=== PATIENT | female | born 1945 | race Caucasian/White ===

== ENCOUNTER 2022-05-26 09:15 | Outpatient (RCR) | payer MEDICARE, BC, SELFPAY | END 2022-07-07 14:22 | disposition home or self-care (01) | PROVIDERS: PCP Family Medicine; Visit Provider Orthopaedic Surgery Sports Medicine | DX: M25.561 Pain in right knee (principal); Z51.89 Encounter for other specified aftercare | CPT/HCPCS: 97110; 97140 ==

== ENCOUNTER 2023-07-24 12:41 | Emergency (ER) | payer MEDICARE, BC, SELFPAY ==
[2023-07-24] VITALS (8 sets, daily range): BP systolic 178–210; BP diastolic 80–113; PULSE 68–95; RESP 16–18; TEMP 36.6–36.9; O2SAT 96–99; BMI 31.0
--- NOTE | 2023-07-24 13:30 | ED_ITS ---
HPI - General Adult General Date Seen: 07/24/23 Chief complaint: Chest Pain Stated complaint: COVID +, trouble breathing/heart palpitations Time Seen by Provider: 07/24/23 12:47 History of Present Illness HPI narrative: This is a pleasant 78-year-old female with a past medical history including osteopenia, sensorineural hearing loss, arthritis who presents to the ER today with an episode of discomfort involving her left anterior chest. She has actually had symptoms dating back about 13 days. Symptoms started with URI symptoms, body aches, nausea and vomiting and diarrhea. They started while she was on a cruise in [place]. Two days into her symptoms she did test positive for coronavirus. She had symptoms ongoing of body aches, nausea and vomiting, cough, fatigue. She has also had some stiffness involving mostly her right leg that tends to be worse in the morning and get gradually better throughout the day. Patient reports that she saw a physician when she was in hungry last Tuesday or just to make sure it was safe for her to come home. Apparently based on her symptoms that Advised that she stay in hungry for further testing (possibly for a cardiac workup and hospitalization) but she declined his recommendation and flew home anyway. Since arriving home she still has on and ongoing mild COVID symptoms some shortness of breath. Mild nonproductive cough. No swelling in her legs. No ongoing fevers. She has been having some mild right-sided and periumbilical abdominal discomfort for the past several days. Today around lunch she had an episode of a feeling involving her left anterior chest below her breast where it felt painful or uncomfortable for about 30 minutes. It started right after she was eating lunch and then resolved on its own. The pain did not radiate. No abdominal pain. No right-sided pain. Did not go through to her back or down her arm. No shortness of breath, nausea, diaphoresis, palpitations. She came to the ER to get it checked out because that feeling of discomfort was different and new compared to her other COVID symptoms. At this time she feels fine. We do not her blood pressure is elevated at about 210/99 but she says she has a known white coat hypertension. Therefore we think her current blood pressure medication is probably exaggerated/inaccurate. She has no history of any heart murmurs, coronary disease, or other cardiac problems. No history of DVT/PE.. Related Data Home Medications Medication Instructions Recorded Confirmed ibuprofen 200 mg tablet (Advil) 200 mg PO Q6H PRN 04/20/22 04/20/22 Allergies Allergy/AdvReac Type Severity Reaction Status Date / Time No Known Allergies Allergy Unknown Verified 07/24/23 16:17 [facility] Medical History (Updated 07/24/23 @ 17:38 by Aiden Bermudez MD) Osteopenia ?M85.80 - Other specified disorders of bone density and structure, unspecified site (ICD-10) Anemia ?D64.9 - Anemia, unspecified (ICD-10) Arthritis ?M19.90 - Unspecified osteoarthritis, unspecified site (ICD-10) History of hepatitis A ?Z86.19 - Personal history of other infectious and parasitic diseases (ICD- 10) Hypercholesteremia ?E78.00 - Pure hypercholesterolemia, unspecified (ICD-10) Asthma ?J45.909 - Unspecified asthma, uncomplicated (ICD-10) Surgical History (Updated 04/20/22 @ 10:07 by Gardenia Watt) History of foot surgery ?Z98.890 - Other specified postprocedural states (ICD-10) History of cataract extraction ?Z98.49 - Cataract extraction status, unspecified eye (ICD-10) History of tonsillectomy ?Z90.89 - Acquired absence of other organs (ICD-10) H/O myomectomy (~1989) ?Z98.890 - Other specified postprocedural states (ICD-10) History of right knee surgery (01/11/22) ?Z98.890 - Other specified postprocedural states (ICD-10) Family History Father Multiple myeloma Tuberculosis Mother History of bile duct cancer High blood pressure Social History Smoking Status: Never smoker Non-prescribed substance use: denies use Exam Narrative: Exam Narrative: Constitutional: Appears well-developed and well-nourished. Alert. Conversant. Non toxic. HENT: Head: Atraumatic. Nose: Nose normal. Mouth/Throat: Oral mucosa is clear and moist. no trismus. Pharynx normal. Tonsil s symmetric. No tonsillar enlargement, erythema, or exudate. Eyes: Conjunctivae normal. EOM normal. Pupils equal, round, and reactive to light. No scleral icterus. Neck: Normal range of motion. Neck supple. No tracheal deviation present. No JVD Cardiovascular: Normal rate, regular rhythm. No gallop. No friction rub. No murmur heard. Symmetric radial and PT artery pulses Pulmonary/Chest: Effort normal. No stridor. No respiratory distress. No wheezes. No rales. No rhonchi . No tenderness. Abdominal: Soft. Bowel sounds normal. No distension. No mass. No right upper quadrant tenderness or Agudelo sign. No left upper quadrant tenderness. No CVA tenderness. No rebound. No guarding. Musculoskeletal: RUE: Normal range of motion. No tenderness. No deformity LUE: Normal range of motion. No tenderness. No deformity RLE: Normal range of motion. No edema. No tenderness. No deformity LLE: Normal range of motion. No edema. No tenderness. No deformity Lymph: No cervical adenopathy. Neurological: Alert and oriented to person, place, and time. Normal strength. CN II-VII intact. No sensory deficit. GCS eye subscore is 4. GCS verbal subscore is 5. GCS motor subscore is 6. Normal coordination Skin: Skin is warm and dry. No rash noted. No pallor. Normal capillary refill. Psychiatric: Normal mood. Normal affect. Const: Vital Signs, click to edit/add: Vital Signs - 24 hr 07/24/23 13:14 07/24/23 13:14 07/24/23 13:15 Temperature 98.4 F Pulse Rate 87 84 Pulse Rate [Pulse Oximeter] 95 Respiratory Rate 18 Blood Pressure Blood Pressure [Ri t Upper Arm] 210/99 H Pulse Oximetry 98 99 99 Oxygen Delivery Me thod Room Air 07/24/23 13:30 07/24/23 13:32 07/24/23 13:45 Temperature Pulse Rate 71 70 68 Pulse Rate [Pulse Oximeter] Respiratory Rate Blood Pressure 180/88 H Blood Pressure [Ri t Upper Arm] Pulse Oximetry 99 99 98 Oxygen Delivery Me thod 07/24/23 14:00 07/24/23 14:03 07/24/23 15:32 Temperature 97.9 F Pulse Rate 71 72 Pulse Rate [Pulse Oximeter] 78 Respiratory Rate 16 Blood Pressure 185/113 H Blood Pressure [Ri ght Upper Arm] 178/80 H Pulse Oximetry 96 99 97 Oxygen Delivery Me thod Room Air Course Vital Signs Vital signs: Initial Vital Signs Temperature 98.4 F 07/24/23 13:14 Temperature Source Temporal Artery Scan 07/24/23 13:14 Pulse Rate 87 07/24/23 13:14 Respiratory Rate 18 07/24/23 13:14 Blood Pressure 210/99 H 07/24/23 13:14 Blood Pressure Mean 136 H 07/24/23 13:14 Pulse Oximetry 98 07/24/23 13:14 Oxygen Delivery Method Room Air 07/24/23 13:14 Vital Signs Temperature 98.4 F 07/24/23 13:14 Pulse Rate 87 07/24/23 13:14 Respiratory Rate 18 07/24/23 13:14 Blood Pressure 210/99 H 07/24/23 13:14 Pulse Oximetry 98 07/24/23 13:14 Oxygen Delivery Method Room Air 07/24/23 13:14 Temperature 97.9 F 07/24/23 15:32 Pulse Rate 78 07/24/23 15:32 Respiratory Rate 16 07/24/23 15:32 Blood Pressure 178/80 H 07/24/23 15:32 Pulse Oximetry 97 07/24/23 15:32 Oxygen Delivery Method Room Air 07/24/23 15:32 Medical Decision Making MDM Narrative Medical decision making narrative: This patient has had recent coronavirus illness associated with cough, body aches, myalgias, some symptoms involving leg weakness, abdominal pain, mild shortness of breath. She is on day 13 of symptoms. At this point she is not hypoxic. Chest CT imaging is negative for PE or any signs of significant pulmonary infiltrates suggesting bad COVID. She presents to the ER today because she had an episode of discomfort involving her left anterior chest below her breast that happened around lunchtime today. It lasted about 30 minutes and resolved on its own. Differential was broad. No evidence of palpitations, syncope or other cardiac dysrhythmia on EKG and registered sales assistant here in the ER. We considered possible ACS. no active pain requiring nitro. Aspirin administered . workup with EKG and troponin is negative. . Given time since onset of symptoms, we did obtain delta troponins in the ER. I do not think the patient needs to be admitted for further sets of enzymes. She was noted to be hypertensive at triage but she endorses a strong history of white coat hypertension. Blood pressure did improve without specific antihypertensive treatment here in the ER but is still slightly elevated. Recommend close outpatient follow-up. EKG shows no evidence for pericarditis. Clinical presentation not suggestive of myocarditis. Chest CT shows no evidence for pneumonia, pneumothorax, pulmonary edema, pleural effusion, rib fracture, cardiomegaly. Mediastinum is normal on the CT. The patient has no ripping or tearing pain through to the back and has symmetric pulses on exam, no other acute neuro findings so I doubt aortic dissection. Risk of radiation and contrast exposure would outweigh the benefit of CT angiogram. We considered PE for this patient. Abnormal D-dimer prompted chest CT. Chest CT is negative for PE. I wonder for D-dimer may be full slightly elevated because of reaction from coronavirus. No wheezing or bronchospasm to suggest COPD/asthma. No signs of sepsis or bacterial pneumonia. No signs of chest wall cellulitis, shingles, injury. With reasonable clinical confidence, I think the patient is safe for outpatient follow up. Discussed return precautions. Questions answered. Patient voices comfort with the plan. Lab Data Labs: Lab Results 07/24/23 07/24/23 Range/Units 13:53 16:26 WBC 6.16 (4.50-11.00) K/uL RBC 4.64 (4.00-5.20) m/uL Hgb 13.6 (12.0-16.0) gm/dL Hct 42.3 (33.0-51.0) % MCV 91 (80-100) fL MCH 29 (26-34) pg MCHC 32 (32-36) gm/dL RDW Coeff of Josephine 12.7 (11.5-15.5) % Plt Count 321 (140-440) K/uL Neut % (Auto) 63.1 (42.0-72.0) % Lymph % (Auto) 27.8 (20-44) % [place] % (Auto) 7.8 (0.0-11.0) % Eos % (Auto) 1.0 (0.0-7.0) % Baso % (Auto) 0.3 (0.0-3.0) % Neut # (Auto) 3.89 (1.7-7.0) K/uL Lymph # (Auto) 1.71 (0.90-2.90) K/uL [place] # (Auto) 0.50 (0.00-0.90) K/UL Eos # (Auto) 0.06 (0.00-0.50) K/uL Baso # (Auto) 0.02 (0.00-0.30) K/uL Abs Immat Gran (auto) 0.00 (0.00-0.30) K/uL Imm/Tot Granulo (auto) 0.0 % D-Dimer Quant (PE/DVT) 0.86 H (0.00-0.50) ug/ml Sodium 140 (135-149) mmol/L Potassium 3.3 L (3.6-5.1) mmol/L Chloride 104 (96-114) mmol/L Carbon Dioxide 30 (20-32) mmol/L Anion Gap 6 L (7-15) mEq/L BUN 17 (7-30) mg/dL Creatinine 0.6 (0.5-1.5) mg/dL Estimated Creat Clear 38.97 Estimated GFR 92 ml/min Glucose 124 H (60-115) mg/dL Calcium 8.9 (8.4-10.6) mg/dL Total Bilirubin 0.4 (0.1-1.5) mg/dL AST 31 (12-35) U/L ALT 16 (4-35) U/L Alkaline Phosphatase 72 (40-150) U/L Troponin I < 0.01 L < 0.01 L (0.01-0.04) ng/mL Total Protein 7.9 (6.0-8.3) g/dL Albumin 4.3 (3.3-5.0) g/dL Lipase 90 (23-300) U/L Imaging Data CT scan - abdomen: Attestation: I have reviewed the pertinent imaging results. Radiologist's impression: PE: Well-timed contrast bolus. No pulmonary emboli. Normal caliber main pulmonary artery. Normal sized right heart chambers. No reflux of contrast below the diaphragm. Heart and great vessels: No pericardial effusion. Normal cardiac chamber size. Few atherosclerotic plaques. No aortic aneurysm. Lungs: Expiratory phase imaging. There are 2 small perifissural nodules along the right minor fissure, consistent with benign intrapulmonary lymph nodes. No consolidations. Expiratory appearance of both lungs. There are scattered ground-glass opacification basilar atelectasis. Pleura: No pleural effusion. No pneumothorax. Airway: Normal tracheobronchial tree. Lymph nodes: No thoracic adenopathy. Mediastinum: No pneumomediastinum. Bones: No fractures. No focal bone lesions. Normal for age. Chest wall: Normal. No masses. Upper abdomen: Normal. IMPRESSION: Normal exam. No pulmonary embolus. ECG Data Attestation: I personally reviewed and interpreted this ECG as follows: Interpretation: Normal sinus rhythm rate 81 IN 144 QRS axis normal axis. no pathologic Q waves ST segment/T wave: st dep in II, FIDELINA in aVR. nonspecific QTc: 434 no old EKGs Discharge Plan Discharge Clinical Impression: COVID-19, Chest pain Patient Disposition: Home, Self-Care Condition: Stable Instructions: Chest Pain (ED) Additional Instructions: At this time your workup is reassuring. You have stable vital signs and normal oxygen. So far testing for your heart looks reassuring. It is safe for you to go home, but please Monitor carefully. If you have worsening symptoms or more episodes of chest pain, worsening shortness of breath, worsening cough, weakn ess, dizzy spells, high fever, or any other problems, please return to the ER right away to be rechecked. If you are not completely improved to normal within the next 5-7 days, check with your doctor or return to the ER for re-evaluation. Prescriptions: No Action ibuprofen [Advil] 200 mg tablet 200 mg PO Q6H PRN Follow Up/Referrals: Ban Wallace MD [Primary Care Provider] - Stand Alone Forms: [employer] Info Instructions
[2023-07-24 14:02] LABS: Basophils Absolute Auto 0.02 K/uL (0.00-0.30); Basophils Percent Auto 0.3 % (0.0-3.0); Eosinophils Absolute Auto 0.06 K/uL (0.00-0.50); Hematocrit 42.3 % (33.0-51.0); Hemoglobin* 13.6 gm/dL (12.0-16.0); Lymphocytes Absolute Auto 1.71 K/uL (0.90-2.90); Lymphocytes Percent Auto 27.8 % (20-44); Mean Corpuscular HGB Conc 32 gm/dL (32-36); Mean Corpuscular Hemoglobin 29 pg (26-34); Mean Corpuscular Volume 91 fL (80-100); Monocytes Percent Auto 7.8 % (0.0-11.0); Neutrophils Absolute Auto 3.89 K/uL (1.7-7.0); Neutrophils Percent Auto 63.1 % (42.0-72.0); Platelet Count* 321 K/uL (140-440); RDW Coefficient of Variation % 12.7 % (11.5-15.5); Red Blood Count 4.64 m/uL (4.00-5.20); White Blood Count* 6.16 K/uL (4.50-11.00)
[2023-07-24 14:06] LABS: Slide Review Reflex No
[2023-07-24 14:15] LABS: Albumin* 4.3 g/dL (3.3-5.0); Chloride* 104 mmol/L (96-114); Potassium* 3.3 mmol/L (3.6-5.1); Sodium* 140 mmol/L (135-149)
[2023-07-24 14:18] LABS: Alanine Aminotransferase* 16 U/L (4-35); Alkaline Phosphatase* 72 U/L (40-150); Anion Gap 6 mEq/L (7-15); Aspartate Amino Transferase* 31 U/L (12-35); Bilirubin Total* 0.4 mg/dL (0.1-1.5); Blood Urea Nitrogen* 17 mg/dL (7-30); Calcium* 8.9 mg/dL (8.4-10.6); Carbon Dioxide* 30 mmol/L (20-32); Creatinine* 0.6 mg/dL (0.5-1.5); Est. Creatinine Clearance* 38.97; Estimated Glomerular Filt Rate 92 ml/min; Glucose* 124 mg/dL (60-115); Lipase* 90 U/L (23-300); Total Protein* 7.9 g/dL (6.0-8.3)
[2023-07-24 14:19] LABS: D Dimer Quantitative* 0.86 ug/ml (0.00-0.50)
[2023-07-24] MEDS: ASPIRIN 81 MG TAB.CHEW 162 MG PO (14:26)
--- NOTE | 2023-07-24 14:52 | CRLHL7_ITS ---
For Patients: As a result of the Century Cures Act, medical imaging exams and procedure reports are released immediately into your electronic medical record. You may view this report before your referring provider. If you have questions, please contact your health care provider. INDICATION: Chest pain, abnormal D-dimer COMPARISON: None. TECHNIQUE: CT angiogram chest with contrast, pulmonary embolism protocol. Multiplanar axial, coronal, and sagittal reformats are included. Intravenous contrast: 95 mL Isovue 370 FINDINGS: PE: Well-timed contrast bolus. No pulmonary emboli. Normal caliber main pulmonary artery. Normal sized right heart chambers. No reflux of contrast below the diaphragm. Heart and great vessels: No pericardial effusion. Normal cardiac chamber size. Few atherosclerotic plaques. No aortic aneurysm. Lungs: Expiratory phase imaging. There are 2 small perifissural nodules along the right minor fissure, consistent with benign intrapulmonary lymph nodes. No consolidations. Expiratory appearance of both lungs. There are scattered ground-glass opacification basilar atelectasis. Pleura: No pleural effusion. No pneumothorax. Airway: Normal tracheobronchial tree. Lymph nodes: No thoracic adenopathy. Mediastinum: No pneumomediastinum. Bones: No fractures. No focal bone lesions. Normal for age. Chest wall: Normal. No masses. Upper abdomen: Normal. IMPRESSION: Normal exam. No pulmonary embolus. Please note that all CT scans at this facility use dose modulation, iterative reconstruction, and/or weight-based dosing when appropriate to reduce radiation dose to as low as reasonably achievable. Dictated by Shannan Rascon MD @ 07/24/2023 3:39:52 PM (Electronically Signed)
[2023-07-24 15:38] LABS: Troponin I* < 0.01 ng/mL (0.01-0.04)
[2023-07-24 17:27] LABS: Troponin I* < 0.01 ng/mL (0.01-0.04)
== END 2023-07-24 17:46 | disposition home or self-care (01) ==
PROVIDERS: Emergency Provider Emergency Medicine; PCP Family Medicine
DX: U07.1 COVID-19 (principal); R07.9 Chest pain, unspecified
CPT/HCPCS: 36415; 71275; 80053; 83690; 84484; 85025; 85379; 93005; 99284; 99285; A9270; Q9967

== ENCOUNTER 2023-09-04 11:27 | Emergency (ER) | payer MEDICARE, BC, SELFPAY ==
[2023-09-04] VITALS (17 sets, daily range): BP systolic 157–199; BP diastolic 98–109; PULSE 78–98; RESP 18; TEMP 36.6; O2SAT 92–98; BMI 28.7
--- NOTE | 2023-09-04 11:45 | ED.GENADULT ---
HPI - General Adult General Time Seen by Provider: 11:45 Date Seen: 09/04/23 Chief complaint: Chest Pain Stated complaint: High BP, chest pain, shortness of breathe Time Seen by Provider: 09/04/23 11:44 Source: patient and RN notes reviewed Mode of arrival: ambulatory Limitations: no limitations History of Present Illness HPI narrative: This 78-year-old female is ambulatory into the ED with concern of her blood pressure. Patient was diagnosed with COVID while in [place] on July 13. She has been monitoring her blood pressure with a wrist monitor since July 15 after she got home. She states there was quite significant issues initially, when in your a pad sore throat cough and diarrhea. The day of her illness, she noted when she went up a flight of steps she became extremely lightheaded, this was just a short number of steps. By the next day she was not able to function, she would feel better by the end of the day but this continued on for the next 4-5 days. She was able to fly home than. She was evaluated in our ER about 6 weeks ago here. In this morning when she woke up, she states she was not feeling well, she was up early around 430-5 a.m.. She states her face just felt swollen and red, looked funny to her, had slight nausea, slight dizziness and felt shaky, had some chest pain in slight shortness of breath. She checked her blood pressure before she was up and moving around, had eaten yet and it was 179/113. Her diastolic number had never reportedly been that high. She rechecked it multiple times throughout the course of the morning, couple hours later the diastolic was 109. She did start feeling better and she came in because when she rechecked her blood pressure was 191/120 and this was feeling better. She does have white coat hypertension but her diastolic has reportedly never been up. Prior to COVID in a knee fracture where she gained some weight she notes her blood pressures were 95-105 and as low as 60s diastolic. Recently, they have been 117/72. Before bed last night she noted that her blood pressure is 145/86. She has had no recent fevers, no cough. She has had no prior heart or lung issues. She does note her right neck has been painful, points to the right base of her neck and has been present for 5 days. She has had this before prior to COVID but it is not lasted this long. She does note that she has an appointment for an echo tomorrow morning as part of all of her symptoms. She does not carry a diagnosis of hypertension. At the time I am talking to her, she does feel slightly short of breath, just has a mild sense of chest pain or pressure. Her blood pressure most recently on the monitor is 199/108, her pulse oximetry is in the upper 90s with a good waveform. Related Data Home Medications Medication Instructions Recorded Confirmed No Known Home Medications 09/04/23 09/04/23 Allergies Allergy/AdvReac Type Severity Reaction Status Date / Time No Known Allergies Allergy Unknown Verified 07/24/23 16:17 Review of Systems Status of ROS: Reports: 10 or more systems reviewed and unremarkable except as noted in History and below [facility] Medical History Osteopenia ?M85.80 - Other specified disorders of bone density and structure, unspecified site (ICD-10) Anemia ?D64.9 - Anemia, unspecified (ICD-10) Arthritis ?M19.90 - Unspecified osteoarthritis, unspecified site (ICD-10) History of hepatitis A ?Z86.19 - Personal history of other infectious and parasitic diseases (ICD-10) Hypercholesteremia ?E78.00 - Pure hypercholesterolemia, unspecified (ICD-10) Asthma ?J45.909 - Unspecified asthma, uncomplicated (ICD-10) Surgical History History of foot surgery ?Z98.890 - Other specified postprocedural states (ICD-10) History of cataract extraction ?Z98.49 - Cataract extraction status, unspecified eye (ICD-10) History of tonsillectomy ?Z90.89 - Acquired absence of other organs (ICD-10) H/O myomectomy (~1989) ?Z98.890 - Other specified postprocedural states (ICD-10) History of right knee surgery (01/11/22) ?Z98.890 - Other specified postprocedural states (ICD-10) Family History Father Multiple myeloma Tuberculosis Mother History of bile duct cancer High blood pressure Social History Smoking Status: Never smoker Non-prescribed substance use: denies use Exam Const: Vital Signs, click to edit/add: Vital Signs - 24 hr 09/04/23 11:33 09/04/23 12:26 09/04/23 12:30 Temperature 98 F Pulse Rate 86 84 Pulse Rate [Pulse Oximeter] 92 Respiratory Rate 18 Blood Pressure Blood Pressure [Ri ght Upper Arm] 199/108 H Pulse Oximetry 97 95 96 Oxygen Delivery Me thod Room Air 09/04/23 12:31 09/04/23 12:32 09/04/23 12:45 Temperature Pulse Rate 98 84 82 Pulse Rate [Pulse Oximeter] Respiratory Rate Blood Pressure 176/109 H Blood Pressure [Ri ght Upper Arm] Pulse Oximetry 96 97 95 Oxygen Delivery Me thod 09/04/23 13:00 09/04/23 13:02 09/04/23 13:15 Temperature Pulse Rate 81 81 80 Pulse Rate [Pulse Oximeter] Respiratory Rate Blood Pressure 157/98 H Blood Pressure [Ri ght Upper Arm] Pulse Oximetry 95 96 95 Oxygen Delivery Me thod 09/04/23 13:30 09/04/23 13:32 09/04/23 13:45 Temperature Pulse Rate 79 88 81 Pulse Rate [Pulse Oximeter] Respiratory Rate Blood Pressure 163/108 H Blood Pressure [Ri ght Upper Arm] Pulse Oximetry 96 98 97 Oxygen Delivery Me thod 09/04/23 14:01 Temperature Pulse Rate 82 Pulse Rate [Pulse Oximeter] Respiratory Rate Blood Pressure Blood Pressure [Ri ght Upper Arm] Pulse Oximetry 95 Oxygen Delivery Me thod Sarah Beth is a very pleasant 78-year-old female, she is lying in the bed in exam room 5. She is alert, interactive, no apparent distress, wearing a mask. Sclera clear, extraocular muscles intact, pupils are equal and round. She has no midline tenderness of her spine, cannot reproduce any paraspinous tenderness, neck is supple with full range of motion. No cervical adenopathy, no thyromegaly masses or nodules. CV regular rate and rhythm, no murmur, normal S1-S2, no S3-S4. Lungs are clear, she sits up easily, there is no tachypnea, no accessory muscle use. Her speech is normal. Abdomen is soft, nontender, nondistended, no organomegaly. She has no lower extremity edema. Moving extremities equally, was ambulatory into the ED of her own accord. Documenting provider has reviewed patient's vital signs: yes Course Course ED Course: This 78-year-old female will be on cardiac monitoring and pulse oximetry. Her blood pressure is certainly elevated, we have discussed that will observe for the time being. Certainly need to think about vascular issues, possible dissection, possible cardiac complications. We will get a full complement of labs including D-dimer and troponin, obviously kidney function as well. She is not hypoxic. Will look at two view chest x-ray to start with, she understands that we may need further advanced imaging. She is not hypoxic. Reevaluation(s) Time of Reevaluation #1: 13:22 Reevaluation #1: Reviewed normal chest x-ray, normal labs to this point. Her D-dimer is essentially the same as it was in June, 0.89 today and was 0.86 on July 24. She has most definitely had ongoing shortness of breath, chest pain and discomfort, dizziness and lightheadedness throughout her COVID. That is why she is having an echo tomorrow. We have discussed her neck pain, she states she just really only brought that up because of all of her other symptoms. She again has had that proceeding her COVID symptoms. No associated headache, no neurologic changes. We will do a 2nd troponin, reviewed with her that I need to figure out the timing on that. If this troponin is normal, likely discharge to home. Her current blood pressure is 1 50s systolic over 90s. She is coming down with her blood pressure without any intervention. We reviewed that this goes to show that interventions we may do can escalate problems and side effects. The fact that her blood pressure is coming down without any intervention, if we would have given her medicine, could have made her hypotensive. She understands the difficulty in just which a seen a blood pressure. I do not feel that any of her symptoms suggest any dissection, her underlying chest symptomatology, shortness of breath, dizziness and lightheadedness have been throughout this illness. I think that checking a 2nd troponin to ensure no change, continue to monitor blood pressure while here is indicated. If all this is staying stable, discharged to home for her echo tomorrow. Time of Reevaluation #2: 14:24 Reevaluation #2: Reviewed with patient that her troponins remained undetectable, EKGs are stable without any concerning change. Will have her follow up outpatient after her echo. She is stable at this time to discharge to home and have her blood pressure followed with her primary care provider. Vital Signs Vital signs: Initial Vital Signs Temperature 98 F 09/04/23 11:33 Temperature Source Temporal Artery Scan 09/04/23 11:33 Pulse Rate 92 09/04/23 11:33 Respiratory Rate 18 09/04/23 11:33 Blood Pressure 199/108 H 09/04/23 11:33 Blood Pressure Mean 138 H 09/04/23 11:33 Blood Pressure Position Supine 09/04/23 11:33 Pulse Oximetry 97 09/04/23 11:33 Oxygen Delivery Method Room Air 09/04/23 11:33 Vital Signs Temperature 98 F 09/04/23 11:33 Pulse Rate 92 09/04/23 11:33 Respiratory Rate 18 09/04/23 11:33 Blood Pressure 199/108 H 09/04/23 11:33 Pulse Oximetry 97 09/04/23 11:33 Oxygen Delivery Method Room Air 09/04/23 11:33 Temperature 98 F 09/04/23 11:33 Pulse Rate 82 09/04/23 14:01 Respiratory Rate 18 09/04/23 11:33 Blood Pressure 163/108 H 09/04/23 13:32 Pulse Oximetry 95 09/04/23 14:01 Oxygen Delivery Method Room Air 09/04/23 11:33 Medical Decision Making Medical Records Medical records reviewed: Yes I reviewed the patient's medical records Medical records narrative: On July 24, had negative chest CT with findings of normal exam and no pulmonary emboli. D-dimer at that point was 0.86. Did review her ER note from that day. Lab Data Lab results reviewed: Yes I reviewed the patient's lab results Labs: Lab Results 09/04/23 09/04/23 09/04/23 Range/Units 12:10 12:33 13:34 WBC 8.15 (4.50-11.00) K/uL RBC 4.77 (4.00-5.20) m/uL Hgb 14.0 (12.0-16.0) gm/dL Hct 43.0 (33.0-51.0) % MCV 90 (80-100) fL MCH 29 (26-34) pg MCHC 33 (32-36) gm/dL RDW Coeff of Josephine 12.5 (11.5-15.5) % Plt Count 253 (140-440) K/uL Neut % (Auto) 74.6 H (42.0-72.0) % Lymph % (Auto) 20.6 (20-44) % Pendleton % (Auto) 4.3 (0.0-11.0) % Eos % (Auto) 0.1 (0.0-7.0) % Baso % (Auto) 0.4 (0.0-3.0) % Neut # (Auto) 6.10 (1.7-7.0) K/uL Lymph # (Auto) 1.68 (0.90-2.90) K/uL Pendleton # (Auto) 0.40 (0.00-0.90) K/UL Eos # (Auto) 0.01 (0.00-0.50) K/uL Baso # (Auto) 0.03 (0.00-0.30) K/uL Abs Immat Gran (auto) 0.00 (0.00-0.30) K/uL Imm/Tot Granulo (auto) 0.0 % D-Dimer Quant (PE/DVT) 0.89 H (0.00-0.50) ug/ml VBG pH 7.378 (7.32-7.43) VBG pCO2 46 (40-50) mmHG VBG pO2 34.0 (25-47) mmHG VBG HCO3 27 (21-28) mmol/L Sodium 140 (135-149) mmol/L Potassium 3.8 (3.6-5.1) mmol/L Chloride 105 (96-114) mmol/L Carbon Dioxide 25 (20-32) mmol/L Anion Gap 10 (7-15) mEq/L BUN 11 (7-30) mg/dL Creatinine 0.6 (0.5-1.5) mg/dL Estimated Creat Clear 40.68 Estimated GFR 92 ml/min Glucose 112 (60-115) mg/dL Calcium 9.4 (8.4-10.6) mg/dL Magnesium 2.0 (1.5-2.6) mg/dL Total Bilirubin 0.3 (0.1-1.5) mg/dL AST 22 (12-35) U/L ALT 16 (4-35) U/L Alkaline Phosphatase 88 (40-150) U/L Troponin I < 0.01 L < 0.01 L (0.01-0.04) ng/mL C-Reactive Protein 0.9 (0.5-1.0) mg/dL NT-Pro-B Natriuret Pep 310 pg/mL Total Protein 8.1 (6.0-8.3) g/dL Albumin 4.7 (3.3-5.0) g/dL Lab Acknowledgement Test Added POC Troponin I 0.02 (0.01-0.04) ng/ml Imaging Data Chest x-ray: Attestation: I have reviewed the pertinent imaging results. My impression: I see no acute pathology on my preliminary review. Radiologist's impression: Patient: GERONIMO PEARSON Facility:?[facility] Patient ID:?[id number] Site Patient ID:?[id number]. Site :?[id number] Study:?XRay Chest 2V-09/04/2023 12:31:16 PM Ordering Physician:Violet Eubanks Final Report: INDICATION: sob, cp, elevated bp s/p covid INDICATION: Shortness of breath and chest pain. TECHNIQUE: Chest 2 views. COMPARISON: CT of the chest, 07/24/2023. FINDINGS: Cardiovascular and mediastinum: Heart size and vasculature are normal in caliber and appearance. Mediastinum is within normal limits. Lungs and pleural spaces: Lungs are clear. No sign of infiltrate or mass. No sign of pleural effusion. No pneumothorax. Bones and soft tissues: No significant findings. IMPRESSION: There is no acute airspace disease. Dictated by Shaq Reed MD @ 09/04/2023 1:07:35 PM Dictated by: Shaq Reed MD @ 09/04/2023 13:07:53 (Electronic Signature) ECG Data Attestation: I personally reviewed and interpreted this ECG as follows: (Normal sinus rhythm, 91 beats per minute, no acute ischemic change or abnormality noted on this EKG. Isolated flipped T-wave in possible incomplete right bundle branch block but by possible artifact in V1, certainly no ST segment changes. QT corrected 432 milliseconds.) Interpretation: Repeat EKG is the same. Sinus rhythm, 77 beats per minute. No acute changes for ischemia. QT corrected 411 milliseconds. Critical Care Time Critical Care Time Critical Care Time: No Discharge Plan Discharge Clinical Impression: Persistent shortness of breath after COVID-19, Elevated blood pressure reading Patient Disposition: Home, Self-Care Condition: Stable Instructions: Hypertension (ED) Additional Instructions: Need to complete the echo scheduled tomorrow, follow up with her primary care provider this week. Your primary care provider may need to monitor your blood pressure closer for while. They may need to consider further workup. The echo will be helpful in seen if there are any hypertensive changes to the heart muscle itself. If there are findings on the echo suggestive of this, medication for blood pressure management really should be considered, even if it is low dose. In the meantime, if you have worsening chest discomfort, shortness of breath, any symptoms suggestive neurologic changed to Stroke or other concerns, do recommend re-evaluation. Handout given on hypertension for you to review, we are not diagnosing you with hypertension at this point, your blood pressures do need to be followed further before I would consider diagnose thing this. Activity Level: Activity as Tolerated Discharge Diet: Heart Healthy (2 gm sodium, low fat) Prescriptions: No Action No Known Home Medications Follow Up/Referrals: Ban Wallace MD [Primary Care Provider] - Stand Alone Forms: [employer] Info Instructions
--- NOTE | 2023-09-04 12:03 | CRLHL7_ITS ---
For Patients: As a result of the Cures Act, medical imaging exams and procedure reports are released immediately into your electronic medical record. You may view this report before your referring provider. If you have questions, please contact your health care provider. INDICATION: sob, cp, elevated bp s/p covid INDICATION: Shortness of breath and chest pain. TECHNIQUE: Chest 2 views. COMPARISON: CT of the chest, 07/24/2023. FINDINGS: Cardiovascular and mediastinum: Heart size and vasculature are normal in caliber and appearance. Mediastinum is within normal limits. Lungs and pleural spaces: Lungs are clear. No sign of infiltrate or mass. No sign of pleural effusion. No pneumothorax. Bones and soft tissues: No significant findings. IMPRESSION: There is no acute airspace disease. Dictated by Shaq Reed MD @ 09/04/2023 1:07:35 PM Dictated by: Shaq Reed MD @ 09/04/2023 13:07:53 (Electronically Signed)
[2023-09-04 12:20] LABS: HCO3 VBG 27 mmol/L (21-28); PCO2 VBG 46 mmHG (40-50); pH VBG 7.378 (7.32-7.43)
[2023-09-04 12:21] LABS: Basophils Absolute Auto 0.03 K/uL (0.00-0.30); Basophils Percent Auto 0.4 % (0.0-3.0); Eosinophils Absolute Auto 0.01 K/uL (0.00-0.50); Eosinophils Percent Auto 0.1 % (0.0-7.0); Lymphocytes Absolute Auto 1.68 K/uL (0.90-2.90); Lymphocytes Percent Auto 20.6 % (20-44); Mean Corpuscular HGB Conc 33 gm/dL (32-36); Mean Corpuscular Hemoglobin 29 pg (26-34); Mean Corpuscular Volume 90 fL (80-100); Monocytes Percent Auto 4.3 % (0.0-11.0); Neutrophils Percent Auto 74.6 % (42.0-72.0); Platelet Count* 253 K/uL (140-440); RDW Coefficient of Variation % 12.5 % (11.5-15.5); Red Blood Count 4.77 m/uL (4.00-5.20); White Blood Count* 8.15 K/uL (4.50-11.00)
[2023-09-04 12:24] LABS: Slide Review Reflex No
[2023-09-04 12:26] LABS: Troponin, Point-of-Care* 0.02 ng/ml (0.01-0.04)
[2023-09-04 12:36] LABS: Albumin* 4.7 g/dL (3.3-5.0); Chloride* 105 mmol/L (96-114)
[2023-09-04 12:37] LABS: Potassium* 3.8 mmol/L (3.6-5.1); Sodium* 140 mmol/L (135-149)
[2023-09-04 12:39] LABS: Creatinine* 0.6 mg/dL (0.5-1.5); Est. Creatinine Clearance* 40.68; Estimated Glomerular Filt Rate 92 ml/min
[2023-09-04 12:40] LABS: Alanine Aminotransferase* 16 U/L (4-35); Alkaline Phosphatase* 88 U/L (40-150); Anion Gap 10 mEq/L (7-15); Aspartate Amino Transferase* 22 U/L (12-35); Bilirubin Total* 0.3 mg/dL (0.1-1.5); Blood Urea Nitrogen* 11 mg/dL (7-30); Carbon Dioxide* 25 mmol/L (20-32); Total Protein* 8.1 g/dL (6.0-8.3)
[2023-09-04 12:41] LABS: Calcium* 9.4 mg/dL (8.4-10.6); Glucose* 112 mg/dL (60-115)
[2023-09-04 12:43] LABS: C Reactive Protein* 0.9 mg/dL (0.5-1.0); D Dimer Quantitative* 0.89 ug/ml (0.00-0.50)
[2023-09-04 13:03] LABS: NT Pro B Type NatriureticPept* 310 pg/mL
[2023-09-04 13:04] LABS: Troponin I* < 0.01 ng/mL (0.01-0.04)
[2023-09-04 14:15] LABS: Troponin I* < 0.01 ng/mL (0.01-0.04)
== END 2023-09-04 14:46 | disposition home or self-care (01) ==
PROVIDERS: Emergency Provider Family Medicine; PCP Family Medicine
DX: R06.02 Shortness of breath (principal); U07.1 COVID-19; R03.0 Elevated blood-pressure reading, without diagnosis of hypertension
CPT/HCPCS: 36415; 71046; 80053; 82803; 83735; 83880; 84484; 85025; 85379; 86140; 93005; 94761; 99284

== ENCOUNTER 2024-11-13 18:18 | Emergency (ER) | payer MEDICARE, BC, SELFPAY ==
[2024-11-13 18:30] VITALS: BP 163/96; PULSE 104; RESP 18; TEMP 36.9; O2SAT 99; BMI 30.1
--- OUTSIDE RECORDS SUMMARY | 2024-11-13 18:30 | XMS_ITS | Clinical Summary ---
Author Organization [facility] Address [address] [place] [id number] Care Team Providers Care Hedge Trimmer Name Role Phone aBn Wallace MD Primary Care Provider [phone] Allergies No known active allergies Medications amLODIPine (NORVASC) 5 mg tabletIndicatio ns:HTN (hypertension) Take 1 Tablet (5 mg) by mouth once daily. 90 Tablet 1 4 Active chlorthalidone (HYGROTON) 25 mg tabletIndicatio ns:HTN (hypertension) Take 0.5 Tablets (12.5 mg) by mouth once daily. 45 Tablet 1 4 Active albuterol HFA (ProAir HFA) 90 mcg/actuation inhalerIndicati ons:COVID-19 virus infection,SOB (shortness of breath) Inhale 1-2 Puffs by mouth every 6 hours if needed for Shortness of Breath 1st choice. 1 Each 3 11/13/19 25 Discontinu ed(*Med complete/R egimen complete/L evel of care change) Active Problems Problem Noted Date Diagnosed Date PSVT (paroxysmal supraventricular tachycardia) 0 09/30/2023 HTN (hypertension) 09/30/2023 Depression, recurrent 09/16/2023 Primary osteoarthritis of both first carpometaca rpal joints 02/24/2018 Overview (12/15/2019): January 2018: Bilateral [facility] Joint thumb injections by Dr. Santana, pain has been reduced by about 65% in the left hand, about 75% in the right. July 2018: repeat bilateral [facility] Joint thumb injections by Dr. Santana. 2 weeks post injections: 80% improvement in left hand and pain barely noticeable in right hand. January 2019: : repeat bilateral [facility] Joint thumb injections by Dr. Santana, 75% improvement at 3 weeks. Apr 2019: repeat bilateral [facility] Joint thumb injections by Dr. Santana, 90% right, 75% left 1 week after injections. Very good benefit bilaterally until October 2019. November 2019: repeat bilateral [facility] Joint injection by Dr. Santana. Left 70% improvement Right 50%. ACP (advance care planning) 08/05/2015 Overview (08/05/2015): Has done that. Jojo Chase M.D. 08/05/2015 11:04 AM Osteopenia 08/05/2015 Sensorineural Hearing Loss, Bilateral 04/04/2007 Resolved Problems Problem Noted Date Diagnosed Date Resolved Date Pyelonephritis 04/27/2013 08/05/2015 Shoulder pain 04/27/2013 08/05/2015 Encounters Date Type Department Care Team Description 11/13/2024 5:40 PM TEXTILE PIN WORKER Telemedicine [facility] [address] [place] [address] Aditi Cobos, LICENSED PROFESSIONAL COUNSELOR Telehealth 11/13/2024 Travel from Last 3 Months Immunizations Name Administration Dates Next Due Amb Influenza, Inact (High-d ose Quadrivalent) (Flu Clinic Only) 06/12/2020 COVID-19 vaccine (Moderna 10 0mcg/0.5mL) PF, MDV 03/26/2022,08/06/2021 COVID-19 vaccine (Moderna 50 mcg/0.5mL) 12YO+ BIVALENT PF, MDV 03/11/2023,07/21/2022,07/13/2022 Influenza, High-dose Inactivated 06/30/2017,05/27 Influenza, High-dose Quadriv alent Inactivated 07/03/2021 Influenza, IIV3 (Age >=3 years) 10/23/2012,11/10 Influenza, Inactivated AIIV4 (Age 65+ Years) Preserv Free 06/28/2023,07/13/2022 Influenza, Inactivated IIV3 (Age 65+ Years) Preserv Free 06/08/2024,10/12/2019,08/28/2018 Pneumococcal Poly,23-Valent (Pneumovax) 07/27/20 13,04/18/2013 Pneumococcal conj 13-Valent (Prevnar 13) 015 RSV, Recombinant ADJ Reconst ituted (Arexvy 120MCG/0.5mL) 07/04/2023 Td, Preservative Free (age >= 7 Years) 5 Tdap 01/10/2022,04/11/2006 Typhoid (injectable) 04/11/2006 Zoster (Shingrix-RZV, recombinant) 04/29/2020, Zoster (Zostavax-ZVL, live) 06/26/2016, 6 Family History Medical History Relation Name Comments Multiple myeloma Father Polycystic kidney disease Maternal Aunt Stroke Maternal Aunt Hypertension Mother Osteoporosis Mother Rheum arthritis Mother Tuberculosis Mother Heart Disease Paternal Grandfather Relation Name Status Comments Father Maternal Aunt Mother Paternal Grandfather Social History Tobacco Use Types Packs/Day Years Used Date Smoking Tobacco: Never Smokeless Tobacco: Never Tobacco Cessation:Counseling Given: Yes Alcohol Use Standard Drinks/Week Comments Yes 0 (1 standard drink = 0.6 oz pur e alcohol) rare PHQ-2 Answer Date Recorded PHQ-2 TOTAL SCORE 0 09/09/2023 Social Connections Answer Date Recorded Do you often feel lonely or isolated from those around you? 0 08/15/2023 Financial Resource Strain Answer Date R ecorded Difficulty of Paying Living Expenses 3 08/15/2023 Difficulty of Paying Living Expenses Not on file 08/15/2023 Food Insecurity Answer Date Recorded Do you worry your food will run out before you are able to buy more? 1 08/15/2023 Transportation Needs Answer Date Record ed Does lack of transportation keep you from medica l appointments? 1 08/15/2023 Does lack of transportation keep you from work, meetings or getting things that you need? 1 08/15/2023 Housing Stability Answer Date Recorded What is your housing situation today? 1 08/15/2023 Comments No Sex and Gender Information Value Date Recorded Sex Assigned at Female 09/04/2020 1:36 PM TEXTILE PIN WORKER Legal Sex Female 5:26 AM TEXTILE PIN WORKER Gender Identity Female 09/04/2020 1:36 PM TEXTILE PIN WORKER Sexual Orientation Straight 09/04/2020 1: 36 PM TEXTILE PIN WORKER Obstetrics History Last Filed Vital Signs Vital Sign Reading Time Taken Comments Blood Pressure 122/62 06/28/2024 2:45 PM CDT Pulse 79 06/28/2024 1:46 PM CDT Temperature 36.8 C (98.2 F) 09/09/2023 12:43 PM TEXTILE PIN WORKER Respiratory Rate - - Oxygen Saturation 99% 06/28/2024 1:46 PM CDT Inhaled Oxygen Concentration - - Weight 73.5 kg (162 lb) 06/28/2024 1:46 PM CDT Height 162.6 cm (5' 4) 10/20/2023 12:57 PM TEXTILE PIN WORKER Body Mass Index 27.81 10/20/2023 12:57 PM TEXTILE PIN WORKER Plan of Treatment Health Maintenance Due Date Last Done Comments Medicare Wellness for age 65+ 11/13/2020 11/13/2019, 08/05/2015 Depression screening for age 12+ 09/12/2024 09/12/2023, 09/12/2023, 09/12/2023, Additional history exists BMI (ht and wt on same day) for age 18+ 10/20/2024 10/20/2023, 09/30/2023, 09/09/2023, Additional history exists Tetanus booster 01/11/2032 01/10/2022, 07/27, 04/11/2006 DEXA/DXA scan for age 65+ Completed 08/05/2015 Pneumococcal series for age 50+ Completed 08/05/2015, 07/27/2013, 04/18/2013 Hepatitis C screening for ag e 18-79 Completed 11/13/2019 Zoster (shingles) series for age 50+ Completed 04/29/2020, 11/20/2019, 06/26/2016, Additional history exists Tdap Completed 01/10/2022, 04/11/2006 RSV vaccine for adults or Completed 07/04/2023 COVID-19 vaccine series Completed 06/08/20 24, 07/05/2023, 03/11/2023, Additional history exists Influenza for age 65+ Completed 06/08/2024 , 06/28/2023, 07/13/2022, Additional history exists Procedures Procedure Name Priority Date/Time Associated Diagnosis Comments ANTI HCV Routine 11/13/2019 1:57 PM TEXTILE PIN WORKER Encounter for hepatitis C screening test for low risk patient XR DXA BONE DENSITY 2 SITES AXIAL Routine 08/05/2015 2:35 PM TEXTILE PIN WORKER Disorder of bone Osteopenia from Last 3 Months or Most Recently Relevant to Health Maintenance Results * ANTI HCV (11/13/2019 1:57 PM TEXTILE PIN WORKER) HEPATITIS C ANTIBODY Non-React kevin Non-React kevin 11/13/2019 10:18 PM TEXTILE PIN WORKER [facility] Comment:Antibodies to HCV no t detected; does not exclude the possibility of exposure to HCV. Blood BLOOD SPECIMEN / Unknown Venipuncture / Unknown 11/13/2019 1:57 PM TEXTILE PIN WORKER 11/13/2019 1:57 PM TEXTILE PIN WORKER us Ban Wallace MD SEND OUTS Final Resul t [facility] [address] [place] [address], [place] * (ABNORMAL) XR DXA BONE DENSITY 2 SITES (08/05/2015 2:35 PM TEXTILE PIN WORKER) Anatomical Region Laterality Modality Spine, HIPS, HIPL, HIPR Other Narrative 08/11/2015 4:35 PM TEXTILE PIN WORKER Please see scanned document for results of this study. us Jojo Chase DEXA Final R esult from Last 3 Months or Most Recently Relevant to Health Maintenance Insurance * Guarantor: Jessi Segura Account Type Relation to Patient Date of Phone Billing Address Personal/Family Self 1945 [address] [place] [address] MEDICARE PB ONLY [facility] MEDICARE PART B HB ONLY Care Teams Hedge Trimmer Relationship Specialty Start Date End Date Ban Wallace MD [address] [place] [address] PCP - General Family Practice 12/06/17
--- NOTE | 2024-11-13 19:17 | ED.GENADULT ---
HPI - General Adult General Date Seen: 11/13/24 Chief complaint: Extremity Pain/Injury, Lower Stated complaint: Intermittent stiffness in legs Time Seen by Provider: 11/13/24 18:19 Source: patient Mode of arrival: ambulatory Limitations: no limitations History of Present Illness HPI narrative: Patient is a 79-year-old female presenting to the emergency department for lower extremity stiffness and pain. She states over the past few would she has had 5 episodes rules were she will stand up but her legs with started to feel very stiff in his if they are full of a heavy fluid. This will mostly be in her thighs on down. She states it feels like it is hard to bend her knees. She will then sit back down and there will be a slight burning sensation for a minute or so and then symptoms will fully resolved. She has had 3 episodes in the past week and to the past 2 days. She is concerned about this and went to urgent care for it and was told it could be possibly electrolyte related or MS. 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 Has not had any changes to her of vision that she is aware of. Has not noticed any hip issues. Does state when she 1st had COVID she had some upper extremity weakness was not any further upper extremity issues. She has not noticed any rashes. Denies chest pain, shortness of breath, abdominal pain, lightheadedness, dizziness, numbness, headache. No other concerns noted. Related Data Home Medications ?Medication ?Instructions ?Recorded ?Confirmed amlodipine 10 mg tablet mg DAILY 11/13/24 chlorthalidone 25 mg tablet mg QAM 11/13/24 Allergies Allergy/AdvReac Type Severity Reaction Status Date / Time No Known Allergies Allergy Unknown Verified 11/13/24 18:38 Review of Systems Status of ROS: Reports: 10 or more systems reviewed and unremarkable except as noted in History and below [facility] Medical History Osteopenia ?M85.80 - Other specified disorders of bone density and structure, unspecified site (ICD-10) Anemia ?D64.9 - Anemia, unspecified (ICD-10) Arthritis ?M19.90 - Unspecified osteoarthritis, unspecified site (ICD-10) History of hepatitis A ?Z86.19 - Personal history of other infectious and parasitic diseases (ICD-10) Hypercholesteremia ?E78.00 - Pure hypercholesterolemia, unspecified (ICD-10) Asthma ?J45.909 - Unspecified asthma, uncomplicated (ICD-10) Surgical History History of foot surgery ?Z98.890 - Other specified postprocedural states (ICD-10) History of cataract extraction ?Z98.49 - Cataract extraction status, unspecified eye (ICD-10) History of tonsillectomy ?Z90.89 - Acquired absence of other organs (ICD-10) H/O myomectomy (~1989) ?Z98.890 - Other specified postprocedural states (ICD-10) History of right knee surgery (01/11/22) ?Z98.890 - Other specified postprocedural states (ICD-10) Family History Father Multiple myeloma Tuberculosis Mother History of bile duct cancer High blood pressure Social History Smoking Status: Never smoker Do you use any of these nicotine containing products: None How often do you have a drink containing alcohol: never How often do you have six or more drinks on one occasion: Never AUDIT-C Alcohol total score: 0 Non-prescribed substance use: denies use service: No Exam Narrative: Exam Narrative: Const: Well-nourished, Well-developed, in no distress Eyes: PERRL, no conjunctival injection, and symmetrical lids HENT: Atraumatic external nose and ears. Moist mucous membranes. Neck: Symmetric, trachea midline, No thyromegaly. CVS: RRR, No murmurs or gallops. Peripheral pulses 2+ and equal in all extremities RESP: Unlabored respiratory effort. Clear to auscultation bilaterally. GI: Nontender/Nondistended, No rebound or guarding. MSK:Extremities w/o deformity, Normal Active ROM Skin: Warm, Dry. No rashes or lesions. Neuro: Normal Muscle tone, No focal neurological deficits. Psych: Awake, Alert, & Oriented x3. Appropriate mood and affect. Const: Vital Signs, click to edit/add: Vital Signs - 24 hr 11/13/24 18:30 Temperature 98.5 F Pulse Rate [Right Pulse Oximeter] 104 H Respiratory Rate 18 Blood Pressure [Ri ght Upper Arm] 163/96 H Pulse Oximetry 99 Oxygen Delivery Me thod Room Air Course Vital Signs Vital signs: Initial Vital Signs Temperature 98.5 F 11/13/24 18:30 Temperature Source Temporal Artery Scan 11/13/24 18:30 Pulse Rate 104 H 11/13/24 18:30 Pulse Rhythm Regular 11/13/24 18:30 Pulse Strength 3+ Normal 11/13/24 18:30 Respiratory Rate 18 11/13/24 18:30 Blood Pressure 163/96 H 11/13/24 18:30 Blood Pressure Mean 118 H 11/13/24 18:30 Blood Pressure Position Sitting 11/13/24 18:30 Pulse Oximetry 99 11/13/24 18:30 Oxygen Delivery Method Room Air 11/13/24 18:30 Vital Signs Temperature 98.5 F 11/13/24 18:30 Pulse Rate 104 H 11/13/24 18:30 Respiratory Rate 18 11/13/24 18:30 Blood Pressure 163/96 H 11/13/24 18:30 Pulse Oximetry 99 11/13/24 18:30 Oxygen Delivery Method Room Air 11/13/24 18:30 Temperature 98.5 F 11/13/24 18:30 Pulse Rate 104 H 11/13/24 18:30 Respiratory Rate 18 11/13/24 18:30 Blood Pressure 163/96 H 11/13/24 18:30 Pulse Oximetry 99 11/13/24 18:30 Oxygen Delivery Method Room Air 11/13/24 18:30 Medical Decision Making [facility] Narrative Medical decision making narrative: Patient is a 79-year-old female presenting to emergency department for lower extremity stiffness. Based on her description this could be electrolyte related so will order a magnesium, BMP. Also order a creatinine kinase as I do have some concern for auto immune myositis. Seems less likely to be a MS flare but that does not need an emergent MRI a either way and can be follow-up outpatient as she is currently asymptomatic. Lab work returned showing no concerning abnormalities. Her potassium is slightly low but unlikely to be causing the symptoms. This point I will discharge her and I informed her to follow up with her primary care provider. She is agreeable to this plan her Lab Data Labs: Lab Results 11/13/24 Range/Units 19:20 WBC 7.98 (4.50-11.00) K/uL RBC 4.64 (4.00-5.20) m/uL Hgb 13.4 (12.0-16.0) gm/dL Hct 41.6 (33.0-51.0) % MCV 90 (80-100) fL MCH 29 (26-34) pg MCHC 32 (32-36) gm/dL RDW Coeff of Josephine 12.8 (11.5-15.5) % Plt Count 294 (140-440) K/uL Neut % (Auto) 67.6 (42.0-72.0) % Lymph % (Auto) 25.1 (20-44) % [place] % (Auto) 5.8 (0.0-11.0) % Eos % (Auto) 0.9 (0.0-7.0) % Baso % (Auto) 0.5 (0.0-3.0) % Neut # (Auto) 5.40 (1.7-7.0) K/uL Lymph # (Auto) 2.00 (0.90-2.90) K/uL [place] # (Auto) 0.50 (0.00-0.90) K/UL Eos # (Auto) 0.07 (0.00-0.50) K/uL Baso # (Auto) 0.04 (0.00-0.30) K/uL Abs Immat Gran (auto) 0.01 (0.00-0.30) K/uL Imm/Tot Granulo (auto) 0.1 % Sodium 136 (135-149) mmol/L Potassium 3.3 L (3.6-5.1) mmol/L Chloride 96 (96-114) mmol/L Carbon Dioxide 31 (20-32) mmol/L Anion Gap 9 (7-15) mEq/L BUN 25 (7-30) mg/dL Creatinine 0.9 (0.5-1.5) mg/dL Estimated Creat Clear 38.35 Estimated GFR 65 ml/min Glucose 147 H (60-115) mg/dL Calcium 9.6 (8.4-10.6) mg/dL Magnesium 2.1 (1.5-2.6) mg/dL Total Creatine Kinase 71 (41-117) U/L Discharge Plan Discharge Clinical Impression: Stiffness of joint of lower extremity Patient Disposition: Home, Self-Care Condition: Stable Additional Instructions: I am not sure what is causing his symptoms at this time but I do recommend follow-up with your primary care provider as they may be able to do further testing. Prescriptions: No Action chlorthalidone 25 mg tablet QAM amlodipine 10 mg tablet DAILY Follow Up/Referrals: Ban Wallace MD [Primary Care Provider] - Stand Alone Forms: [facility]SI[facility] Info Instructions
[2024-11-13 19:32] LABS: Basophils Absolute Auto 0.04 K/uL (0.00-0.30); Basophils Percent Auto 0.5 % (0.0-3.0); Eosinophils Absolute Auto 0.07 K/uL (0.00-0.50); Eosinophils Percent Auto 0.9 % (0.0-7.0); Hematocrit 41.6 % (33.0-51.0); Hemoglobin* 13.4 gm/dL (12.0-16.0); Immature Granulocytes Abs Auto 0.01 K/uL (0.00-0.30); Immature Granulocytes Pct Auto 0.1 %; Lymphocytes Percent Auto 25.1 % (20-44); Mean Corpuscular HGB Conc 32 gm/dL (32-36); Mean Corpuscular Hemoglobin 29 pg (26-34); Mean Corpuscular Volume 90 fL (80-100); Monocytes Percent Auto 5.8 % (0.0-11.0); Neutrophils Percent Auto 67.6 % (42.0-72.0); Platelet Count* 294 K/uL (140-440); RDW Coefficient of Variation % 12.8 % (11.5-15.5); Red Blood Count 4.64 m/uL (4.00-5.20); White Blood Count* 7.98 K/uL (4.50-11.00)
[2024-11-13 19:40] LABS: Slide Review Reflex No
[2024-11-13 19:56] LABS: Chloride* 96 mmol/L (96-114); Sodium* 136 mmol/L (135-149)
[2024-11-13 19:57] LABS: Potassium* 3.3 mmol/L (3.6-5.1)
[2024-11-13 19:59] LABS: Anion Gap 9 mEq/L (7-15); Blood Urea Nitrogen* 25 mg/dL (7-30); Carbon Dioxide* 31 mmol/L (20-32); Creatine Kinase* 71 U/L (41-117); Creatinine* 0.9 mg/dL (0.5-1.5); Est. Creatinine Clearance* 38.35; Estimated Glomerular Filt Rate 65 ml/min; Glucose* 147 mg/dL (60-115)
[2024-11-13 20:00] LABS: Calcium* 9.6 mg/dL (8.4-10.6); Magnesium* 2.1 mg/dL (1.5-2.6)
== END 2024-11-13 20:22 | disposition home or self-care (01) ==
PROVIDERS: Emergency Provider Student in an Organized Health Care Education/Training Program; PCP Family Medicine
DX: M25.69 Stiffness of other specified joint, not elsewhere classified (principal)
CPT/HCPCS: 36415; 80048; 82550; 83735; 85025; 99283